=== PATIENT | male | born 1985 | race American Indian/Alaskan Native ===

== ENCOUNTER 2018-04-06 15:02 | Emergency (ER) | payer SELFPAY ==
[2018-04-06] MEDS ORDERED: NACL 0.9% 1000 ML 1,000 ML IV ONE ×2 (15:21→15:23)
--- NOTE | 2018-04-06 16:31 | XRay Report ---
FINAL REPORT EXAM: XR CHEST 1V AP HISTORY: Medical Clearance Psych TECHNIQUE: Frontal portable view of the chest Comparison: None FINDINGS: Visualization detail is somewhat limited by artifact created by large body habitus. There is bilateral hypoinflation. There appears to be bilateral pleural effusions with associated pulmonary consolidation in both lung bases. The cardiac silhouette is partially obscured by the hypoinflation and probable pleural effusions. The thoracic aorta and bony structures are unremarkable. Visualization detail of the thoracic spine is limited. IMPRESSION: 1. Study degraded by artifact created by large body habitus. 2. Hypoinflation. 3. Appearance of bilateral pleural effusions with associated pulmonary consolidation both lung bases. CT chest would be helpful for further evaluation.
[2018-04-06 16:32] LABS: Basophils % (Auto) 0.9 % (0.0-1.8); Eosinophils # (Auto) 0.2 K/mm3 (0.0-0.4); Eosinophils % (Auto) 3.2 % (0.0-4.3); Hematocrit 45.4 % (35.5-45.6); Hemoglobin 15.2 gm/dl (11.8-15.2); Lymphocytes # (Auto) 2.2 K/mm3 (1.2-5.4); Lymphocytes % (Auto) 43.8 % (13.4-35.0); Mean Corpuscular HGB Conc 33 % (32-34); Mean Corpuscular Hemoglobin 28 pg (28-32); Mean Corpuscular Volume 83 fl (84-94); Monocytes # (Auto) 0.4 K/mm3 (0.0-0.8); Platelet Count 311 K/mm3 (140-440); Red Blood Count 5.46 M/mm3 (3.65-5.03)
[2018-04-06 16:51] LABS: Alanine Aminotransferase 30 units/L (7-56); BUN/Creatinine Ratio 8; Blood Urea Nitrogen 6 mg/dL (9-20); Calcium 8.9 mg/dL (8.4-10.2); Hemolysis Index 10
--- NOTE | 2018-04-06 16:52 | Emergency Department Report ---
ED General Adult HPI - General Chief complaint: Psych Stated complaint: OVERDOSE/SUICIDE ATTEMPT Time Seen by Provider: 04/06/18 15:16 Source: EMS Mode of arrival: Stretcher Limitations: No Limitations - History of Present Illness Initial comments: Patient is a 33-year-old malewith a past medical history who presents with intentional overdose and encephalopathy. Patient talk approximately 20 pills of Benadryl, Atarax and ibuprofen. He did this in attempt to end his life. History is obtained by patient's sister. Further history is limited due to patient's mental status. Patient has not had any nausea or vomiting he currently denies being in any pain. patient does not smoke or drink according to the sister employed - Related Data Allergies Allergy/AdvReac Type Severity Reaction Status Date / Time No Known Allergies Allergy Verified 04/06/18 19:22 ED Review of Systems ROS: Stated complaint: OVERDOSE/SUICIDE ATTEMPT Other details as noted in HPI Constitutional: denies: chills, fever Eyes: denies: eye pain, eye discharge, vision change ENT: denies: ear pain, throat pain Respiratory: denies: cough, shortness of breath, wheezing Cardiovascular: denies: chest pain, palpitations Endocrine: no symptoms reported Gastrointestinal: denies: abdominal pain, nausea, diarrhea Genitourinary: denies: urgency, dysuria Musculoskeletal: denies: back pain, joint swelling, arthralgia Skin: denies: rash, lesions Neurological: denies: headache, weakness, paresthesias Psychiatric: suicidal thoughts. denies: anxiety, depression Hematological/Lymphatic: denies: easy bleeding, easy bruising ED Physical Exam - General Limitations: No Limitations General appearance: alert, obtunded - Head Head exam: Present: atraumatic, normocephalic - Eye Eye exam: Present: normal appearance - ENT ENT exam: Present: mucous membranes moist - Neck Neck exam: Present: normal inspection - Respiratory Respiratory exam: Present: normal lung sounds bilaterally. Absent: respiratory distress - Cardiovascular Cardiovascular Exam: Present: regular rate, normal rhythm. Absent: systolic murmur, diastolic murmur, rubs, gallop - GI/Abdominal GI/Abdominal exam: Present: soft, normal bowel sounds - Rectal Rectal exam: Present: deferred - Extremities Exam Extremities exam: Present: normal inspection - Back Exam Back exam: Present: normal inspection - Neurological Exam Neurological exam: Present: alert, oriented X3 - Psychiatric Psychiatric exam: Present: normal affect, normal mood - Skin Skin exam: Present: warm, dry, intact, normal color. Absent: rash ED Course Vital Signs 04/06/18 04/06/18 04/06/18 15:11 15:16 15:30 Temperature Pulse Rate 113 H 114 H Respiratory 22 22 Rate Blood Pressure Blood Pressure [Right] O2 Sat by Pulse 94 96 97 Oximetry 04/06/18 04/06/18 04/06/18 15:45 16:00 16:15 Temperature 97.9 F Pulse Rate 111 H 119 H 109 H Respiratory 22 20 27 H Rate Blood Pressure 116/80 129/83 127/86 Blood Pressure 123/82 [Right] O2 Sat by Pulse 97 99 98 Oximetry 04/06/18 04/06/18 04/06/18 16:30 16:46 17:00 Temperature Pulse Rate 116 H 119 H 108 H Respiratory 29 H 25 H 24 Rate Blood Pressure 123/82 102/67 121/87 Blood Pressure [Right] O2 Sat by Pulse 97 99 99 Oximetry 04/06/18 04/06/18 04/06/18 17:15 17:20 17:30 Temperature Pulse Rate 104 H 126 H Respiratory 30 H 18 Rate Blood Pressure 115/84 115/84 Blood Pressure [Right] O2 Sat by Pulse 98 99 Oximetry 04/06/18 04/06/18 04/06/18 17:46 18:00 18:16 Temperature Pulse Rate 106 H 105 H 109 H Respiratory 21 29 H 18 Rate Blood Pressure 115/84 115/84 115/84 Blood Pressure [Right] O2 Sat by Pulse Oximetry 04/06/18 04/06/18 04/06/18 18:30 18:45 19:00 Temperature Pulse Rate 102 H 100 H 104 H Respiratory 30 H 28 H 30 H Rate Blood Pressure 122/79 120/76 135/90 Blood Pressure [Right] O2 Sat by Pulse 98 98 98 Oximetry 04/06/18 19:15 Temperature Pulse Rate 104 H Respiratory 23 Rate Blood Pressure 124/82 Blood Pressure [Right] O2 Sat by Pulse 97 Oximetry ED Medical Decision Making - Lab Data Result diagrams: 04/06/18 16:06 04/06/18 16:06 Lab Results 04/06/18 04/06/18 04/06/18 Range/Units 16:06 16:06 16:06 WBC 5.1 (4.5-11.0) K/mm3 RBC 5.46 H (3.65-5.03) M/mm3 Hgb 15.2 (11.8-15.2) gm/dl Hct 45.4 (35.5-45.6) % MCV 83 L (84-94) fl MCH 28 (28-32) pg MCHC 33 (32-34) % RDW 13.0 L (13.2-15.2) % Plt Count 311 (140-440) K/mm3 Lymph % (Auto) 43.8 H (13.4-35.0) % [place] % (Auto) 8.0 H (0.0-7.3) % Eos % (Auto) 3.2 (0.0-4.3) % Baso % (Auto) 0.9 (0.0-1.8) % Lymph # 2.2 (1.2-5.4) K/mm3 [place] # 0.4 (0.0-0.8) K/mm3 Eos # 0.2 (0.0-0.4) K/mm3 Baso # 0.0 (0.0-0.1) K/mm3 Seg Neutrophils % 44.1 (40.0-70.0) % Seg Neutrophils # 2.2 (1.8-7.7) K/mm3 Sodium 139 (137-145) mmol/L Potassium 3.7 (3.6-5.0) mmol/L Chloride 105.0 (98-107) mmol/L Carbon Dioxide 22 (22-30) mmol/L Anion Gap 16 mmol/L BUN 6 L (9-20) mg/dL Creatinine 0.8 (0.8-1.5) mg/dL Estimated GFR > 60 ml/min BUN/Creatinine Ratio 8 % Glucose 104 H (75-100) mg/dL Calcium 8.9 (8.4-10.2) mg/dL Total Bilirubin 0.50 (0.1-1.2) mg/dL AST 19 (5-40) units/L ALT 30 (7-56) units/L Alkaline Phosphatase 51 (35-129) units/L Total Protein 7.3 (6.3-8.2) g/dL Albumin 4.0 (3.9-5) g/dL Albumin/Globulin Ratio 1.2 % Salicylates < 0.3 L (2.8-20.0) mg/dL Acetaminophen (10.0-30.0) ug/mL Plasma/Serum Alcohol (0-0.07) % 04/06/18 04/06/18 Range/Units 16:06 16:06 WBC (4.5-11.0) K/mm3 RBC (3.65-5.03) M/mm3 Hgb (11.8-15.2) gm/dl Hct (35.5-45.6) % MCV (84-94) fl MCH (28-32) pg MCHC (32-34) % RDW (13.2-15.2) % Plt Count (140-440) K/mm3 Lymph % (Auto) (13.4-35.0) % [place] % (Auto) (0.0-7.3) % Eos % (Auto) (0.0-4.3) % Baso % (Auto) (0.0-1.8) % Lymph # (1.2-5.4) K/mm3 [place] # (0.0-0.8) K/mm3 Eos # (0.0-0.4) K/mm3 Baso # (0.0-0.1) K/mm3 Seg Neutrophils % (40.0-70.0) % Seg Neutrophils # (1.8-7.7) K/mm3 Sodium (137-145) mmol/L Potassium (3.6-5.0) mmol/L Chloride (98-107) mmol/L Carbon Dioxide (22-30) mmol/L Anion Gap mmol/L BUN (9-20) mg/dL Creatinine (0.8-1.5) mg/dL Estimated GFR ml/min BUN/Creatinine Ratio % Glucose (75-100) mg/dL Calcium (8.4-10.2) mg/dL Total Bilirubin (0.1-1.2) mg/dL AST (5-40) units/L ALT (7-56) units/L Alkaline Phosphatase (35-129) units/L Total Protein (6.3-8.2) g/dL Albumin (3.9-5) g/dL Albumin/Globulin Ratio % Salicylates (2.8-20.0) mg/dL Acetaminophen 20.9 (10.0-30.0) ug/mL Plasma/Serum Alcohol < 0.01 (0-0.07) % - EKG Data -: EKG Interpreted by Me - EKG Data 04/06/18 19:02 EKG shows sinus tachycardia, no st segment elevations or T wave inversions normal axis. - Radiology Data Radiology results: report reviewed, image reviewed Cxr: shows hypoventation and bilateral atlectasis CT: Shows no acute intracranial pathology. - Medical Decision Making Cdx: Intentional ingestion ddx: toxic encephalopathy electrolyte abnormality I will sign 1013 on patient I will have patient be seen by psych. I will give patient IV fluids Patient is medically cleared from poison control's standpoint. I will have a repeat tylenol level and EKG level Critical care attestation.: If time is entered above; I have spent that time in minutes in the direct care of this critically ill patient, excluding procedure time. ED Disposition Clinical Impression: Toxic encephalopathy Ingestion of unknown medication Qualifiers: Encounter type: initial encounter Injury intent: accidental or unintentional Qualified Code(s): T50.901A - Poisoning by unspecified drugs, medicaments and biological substances, accidental (unintentional), initial encounter Suicidal behavior Qualifiers: Attempted self-injury: with attempted self-injury Qualified Code(s): T14.91XA - Suicide attempt, initial encounter Disposition: DC/TX-65 PSY HOSP/PSY UNIT Is pt being admited?: No Does the pt Need Aspirin: No Condition: Stable Referrals: PRIMARY CARE, [Primary Care Provider] - 3-5 Days
--- NOTE | 2018-04-06 18:05 | Cat Scan Report ---
FINAL REPORT EXAM: CT HEAD/BRAIN WO CON HISTORY: altered mental status TECHNIQUE: 3 millimeter axial images from the skullbase to the vertex. Comparison: None FINDINGS: There is no evidence of an acute intracranial process, intracranial hemorrhage or mass effect. The ventricles are normal size. The visualized portions of the orbits, paranasal and mastoid sinuses are notable for moderate bilateral ethmoid sinus mucosal thickening and mild to moderate mucosal thickening of the inferior recesses of the frontal sinuses bilaterally. The bony structures are unremarkable in appearance. IMPRESSION: 1. No evidence of an acute intracranial process, intracranial hemorrhage or mass effect. 2. Ethmoid sinus mucosal thickening.
[2018-04-06] MEDS ORDERED: MAGNESIUM SULFATE 1 GM in NACL 0.9% 50 ML IV ONE (19:12)
[2018-04-06 23:04] LABS: Bilirubin,Urine NEG (Negative); Blood,Urine NEG (Negative); Color,Urine Yellow (Yellow); Mucus,Urine 2+ /HPF; Protein,Urine <15 mg/dL mg/dL (Negative)
[2018-04-06 23:09] LABS: Amphetamine Screen,Urine PRESUMPTIVE NEGATIVE; Benzodiazepines Screen,Urine PRESUMPTIVE NEGATIVE; Cannabinoid Screen,Urine PRESUMPTIVE NEGATIVE; Cocaine Screen,Urine PRESUMPTIVE NEGATIVE; Methadone Screen,Urine PRESUMPTIVE NEGATIVE; Opiate Screen,Urine PRESUMPTIVE NEGATIVE
--- NOTE | 2018-04-07 13:29 | Consultation ---
History of Present Illness - Reason for Consult Consult date: 04/07/18 Reason for consult: Mental Health Evaluation Requesting physician: CHRISTIANO CHURCHILL - Chief Complaint Chief complaint: "I wanted to " - History of Present Psychiatric Illness 33-year-old AA male presenting to the ER for an intentional overdose. Today the patient is calm and cooperative during the assessment. He stated that he wanted to "" when he took several Benadryl, Ibuprofen, and Atarax pills. He stated going through a lot lately (no longer getting and family issues). He stated that these issues have been a lot to deal with. He stated that he felt lonely, helpless, and hopeless prior to the overdose. He stated that his life is in "shambles" now. He denies a previous suicide attempt when asked. He denies SI/HI's and AVH's. He acknowledged erratic sleep, but denies any manic episodes in the past. He stated, "I hate taking pills." He stated that he would like a medication for sleep, "That's it." Medications and Allergies Allergies Allergy/AdvReac Type Severity Reaction Status Date / Time No Known Allergies Allergy Verified 04/06/18 19:22 Home Medications Medication Instructions Recorded Confirmed Last Taken Type No Known Home Medications [No 04/07/18 04/07/18 Unknown History Reported Home Medications] Past psychiatric history - Past Medical History Past Medical History: No medical history Past Surgical History: No surgical history - past Psychiatric treatment and history psychiatric treatment history: Denies a psy hx and fam psy hx. - Social History Social history: lives with family Mental Status Exam - Vital signs Last Vital Signs Temp 98.3 F 04/07/18 10:20 Pulse 83 04/07/18 10:20 Resp 16 04/07/18 10:30 BP 133/73 04/07/18 10:20 Pulse Ox 97 04/07/18 10:30 - Exam Narrative exam: MSE: Appearance: calm, cooperative Behavior: regular eye contact Speech: regular rate and low tone Mood: "okay" withdrawn, sad Affect: congruent to mood Thought Process: circumstantial Thought Content: denies SI/HI's and AVH's Motor Activity: lying in bed Cognition: A/O x 3 Insight: variable Judgment: variable Results Result Diagrams: 04/06/18 16:06 04/06/18 16:06 Abnormal lab results 04/06/18 04/06/18 04/06/18 Range/Units 16:06 16:06 16:06 RBC 5.46 H (3.65-5.03) M/mm3 MCV 83 L (84-94) fl RDW 13.0 L (13.2-15.2) % Lymph % (Auto) 43.8 H (13.4-35.0) % [place] % (Auto) 8.0 H (0.0-7.3) % BUN 6 L (9-20) mg/dL Glucose 104 H (75-100) mg/dL Salicylates < 0.3 L (2.8-20.0) mg/dL All other labs normal. Assessment and Plan Assessment and plan: Impression: MDD, Severe Type. Today the patient is calm and cooperative during the assessment. UDS is negative. DDx: R/O Bipolar DO Recommendation/Plan: Continue 1013 with placement to inpatient psy services. Discussed risk/benefit of antidepressants with the patient. He is willing to take Trazodone 50 mg PO HS for sleep. Discussed possible suicidality/medication induced sree/priapism with patient reference Trazodone. Discussed generalized coping skills with the patient.
--- NOTE | 2018-04-07 13:53 | Consultation ---
History of Present Illness - Reason for Consult Consult date: 04/07/18 Reason for consult: Mental Health Evaluation - Chief Complaint Chief complaint: "I wanted to " Medications and Allergies Allergies Allergy/AdvReac Type Severity Reaction Status Date / Time No Known Allergies Allergy Verified 04/06/18 19:22 Home Medications Medication Instructions Recorded Confirmed Last Taken Type No Known Home Medications [No 04/07/18 04/07/18 Unknown History Reported Home Medications] Active Meds: Active Medications Trazodone HCl (Desyrel) 50 mg PO [facility] Mental Status Exam - Vital signs Last Vital Signs Temp 98.3 F 04/07/18 10:20 Pulse 83 04/07/18 10:20 Resp 16 04/07/18 10:30 BP 133/73 04/07/18 10:20 Pulse Ox 97 04/07/18 10:30 Results Result Diagrams: 04/06/18 16:06 04/06/18 16:06 Abnormal lab results 04/06/18 04/06/18 04/06/18 Range/Units 16:06 16:06 16:06 RBC 5.46 H (3.65-5.03) M/mm3 MCV 83 L (84-94) fl RDW 13.0 L (13.2-15.2) % Lymph % (Auto) 43.8 H (13.4-35.0) % [place] % (Auto) 8.0 H (0.0-7.3) % BUN 6 L (9-20) mg/dL Glucose 104 H (75-100) mg/dL Salicylates < 0.3 L (2.8-20.0) mg/dL All other labs normal.
[2018-04-07] MEDS ORDERED: DESYREL PO SCH (22:00)
[2018-04-08 07:59] VITALS: BP 128/82
--- NOTE | 2018-04-09 14:32 | Progress Note ---
Subjective - Reason for Consult Consult date: 04/09/18 Reason for consult: Psychiatric Follow-up Evaluation - Chief Complaint Chief complaint: "" Patient is a 33-year-old male who presents to the ER for an intentional overdose. Today the patient is calm and cooperative during the assessment. He stated that he wanted to "" when he took several Benadryl, Ibuprofen, and Atarax pills. He stated going through a lot lately (no longer getting and family issues). He stated that these issues have been a lot to deal with. He stated that he felt lonely, helpless, and hopeless prior to the overdose. He stated that his life is in "shambles" now. He denies a previous suicide attempt when asked. He denies SI/HI's and AVH's. He acknowledged erratic sleep, but denies any manic episodes in the past. He stated , "I hate taking pills." He stated that he would like a medication for sleep, "That's it." Mental Status Exam - Vital signs Last Vital Signs Temp 98.3 F 04/08/18 07:46 Pulse 82 04/08/18 07:46 Resp 18 04/08/18 07:46 BP 128/82 04/08/18 07:46 Pulse Ox 99 04/08/18 07:46 - Exam Narrative exam: Mental Status Exam General Appearance: Causally Dressed-hospital gown, dishelved, in restraints Eye Contact: Poor Orientation: Alert and oriented to person. Unable to assess orientation. Attitude/Behavior: Uncooperative, agitated Sensorium: Distracted Psychomotor & Musculoskeletal Activity: Laying in bed Mood: "Awful." Labile, anxious, agitated Affect: Incongruent Speech/Language: Loud Thought Processes: Disorganized Thought Content: Impoverished Perception: + Auditory hallucinations, responding to internal stimuli (laughing/ talking inapp.) Concentration/Attention: Impaired Suicidal Ideations/Plan: Patient denies. Homicidal Ideations/Plan: Patient denies. Judgment: Poor Insight: Poor Assessment and Plan Impression: MDD, Severe Type. Today the patient is calm and cooperative during the assessment. UDS is negative. DDx: R/O Bipolar DO Recommendation/Plan: Continue 1013 with placement to inpatient psy services. Discussed risk/benefit of antidepressants with the patient. He is willing to take Trazodone 50 mg PO HS for sleep. Discussed possible suicidality/medication induced sree/priapism with patient reference Trazodone. Discussed generalized coping skills with the patient.
== END 2018-04-08 07:45 ==
LOC: ED 15:02
DX: G92 Toxic encephalopathy (principal); T50.901A Poisoning by unspecified drugs, medicaments and biological substances, accidental (unintentional), initial encounter; T14.91XA Suicide attempt, initial encounter; F32.9 Major depressive disorder, single episode, unspecified
CPT/HCPCS: 36415; 70450; 71045; 80053; 80307; 81001; 85025; 93005; 93010; G0480; J3475; J7030; 80320; 96365